=== PATIENT | female | born 1955 | race Hispanic/Latino ===

== ENCOUNTER 2020-09-17 09:39 | Inpatient (IN) | payer OTHER ==
[2020-09-17 11:13] LABS: Absolute Lymphocytes (CBC) 0.5 K/uL (0.7-4.9); Basophils % 0.3 % (0-1.3); Hematocrit 37.5 % (36.0-45.0); Lymphocytes % 4.5 % (15.3-44.8); MPV 11.5 fL (7.6-11.3); RBC Red Blood Cell Count 4.45 M/uL (3.86-4.86)
[2020-09-17] MEDS ORDERED: CEFTRIAXONE/SWI 1gm 1 GM/10 ML SYR ONE (11:13)
[2020-09-17] MEDS ORDERED: NA CHLORIDE 0.9% 3,000 ML ONE (11:13)
[2020-09-17] MEDS ORDERED: FAMOTIDINE 20 MG/2 ML VIAL IV ONE (11:13)
[2020-09-17] MEDS ORDERED: ASPIRIN 81 MG CHEWABLE TABLET ONE (11:13)
[2020-09-17] MEDS ORDERED: NA CHLORIDE 0.9% 250 ML ONE (11:13)
[2020-09-17] MEDS ORDERED: AZITHROMYCIN 500 MG INJ IVPB ONE (11:16)
[2020-09-17 11:17] LABS: Protime INR 1.07
[2020-09-17] MEDS ORDERED: ACETAMINOPHEN 500 MG TAB ONE (11:19)
--- NOTE | 2020-09-17 11:22 | RAD REPORT ---
EXAM DESCRIPTION: Yayo Single View09/17/2020 10:50 am CLINICAL HISTORY: Cough COMPARISON: none FINDINGS: Mild elevation right hemidiaphragm. The lungs appear clear of acute infiltrate. The heart is normal size
[2020-09-17 11:26] LABS: ALT/SGPT 14 U/L (12-78); AST/SGOT 14 U/L (15-37); Albumin 2.6 g/dL (3.4-5.0); Alkaline Phosphatase 74 U/L (45-117); Amylase 37 U/L (25-115); BUN Blood Urea Nitrogen 26 mg/dL (7-18); Bicarbonate 23 mmol/L (21-32); Bilirubin Direct 0.2 mg/dL (0-0.2); Bilirubin Total 0.5 mg/dL (0.2-1.0); Creatine Phosphokinase 72 U/L (26-192); Glucose Level 384 mg/dL (74-106); Lipase 165 U/L (73-393); Potassium 3.7 mmol/L (3.5-5.1); Protein, Total 7.7 g/dL (6.4-8.2); Sodium Level 130 mmol/L (136-145); Troponin (Emerg Dept Use Only) < 0.02 ng/mL (0.0-0.045)
[2020-09-17 11:33] LABS: CKMB Creatine Kinase MB < 1.0 ng/mL (1.0-3.6)
--- NOTE | 2020-09-17 11:40 | EDPHYS ---
Physician Documentation [facility] Name: Rachael Hillman Age: 65 yrs Sex: Female : 1955 Arrival Date: 09/17/2020 Time: 09:41 Bed 17 Private MD: Paul House H ED Physician Matthew Suarez HPI: 09/17 10:51 This 65 yrs old Female presents to ER via Wheelchair with complaints of migdalia Weakness, Cough. 10:51 The patient presents to the emergency department with weakness of the entire body, migdalia generalized weakness. Onset: The symptoms/episode began/occurred yesterday. Historical: - Allergies: 09:49 No Known Allergies; aa5 - PMHx: 09:49 Hypertensive disorder; Diabetes mellitus; Hypercholesterolemia; aa5 - PSHx: 09:49 Cholecystectomy; aa5 - Immunization history:: Adult Immunizations up to date. - Social history:: Smoking status: Patient denies any tobacco usage or history of. ROS: 10:52 Eyes: Negative for injury, pain, redness, and discharge, ENT: Negative for injury, migdalia pain, and discharge, Neck: Negative for injury, pain, and swelling, Cardiovascular: Negative for chest pain, palpitations, and edema, Abdomen/GI: Negative for abdominal pain, nausea, vomiting, diarrhea, and constipation, Back: Negative for injury and pain, : Negative for injury, bleeding, discharge, and swelling, MS/Extremity: Negative for injury and deformity, Skin: Negative for injury, rash, and discoloration, Neuro: Negative for headache, weakness, numbness, tingling, and seizure, Psych: Negative for depression, anxiety, suicide ideation, homicidal ideation, and hallucinations, Allergy/Immunology: Negative for hives, rash, and allergies, Endocrine: Negative for neck swelling, polydipsia, polyuria, polyphagia, and marked weight changes, Hematologic/Lymphatic: Negative for swollen nodes, abnormal bleeding, and unusual bruising. 10:52 Constitutional: Positive for body aches, chills, fever, malaise. 10:52 Respiratory: Positive for cough, "sounds productive". Exam: 10:52 Head/Face: Normocephalic, atraumatic. Eyes: Pupils equal round and reactive to light, migdalia extra-ocular motions intact. Lids and lashes normal. Conjunctiva and sclera are non-icteric and not injected. Cornea within normal limits. Periorbital areas with no swelling, redness, or edema. ENT: Nares patent. No nasal discharge, no septal abnormalities noted. Tympanic membranes are normal and external auditory canals are clear. Oropharynx with no redness, swelling, or masses, exudates, or evidence of obstruction, uvula midline. Mucous membranes moist. Neck: Trachea midline, no thyromegaly or masses palpated, and no cervical lymphadenopathy. Supple, full range of motion without nuchal rigidity, or vertebral point tenderness. No Meningismus. Chest/axilla: Normal chest wall appearance and motion. Nontender with no deformity. No lesions are appreciated. Cardiovascular: Regular rate and rhythm with a normal S1 and S2. No gallops, murmurs, or rubs. Normal PMI, no JVD. No pulse deficits. Respiratory: Lungs have equal breath sounds bilaterally, clear to auscultation and percussion. No rales, rhonchi or wheezes noted. No increased work of breathing, no retractions or nasal flaring. Abdomen/GI: Soft, non-tender, with normal bowel sounds. No distension or tympany. No guarding or rebound. No evidence of tenderness throughout. Back: No spinal tenderness. No costovertebral tenderness. Full range of motion. Female : Normal external genitalia. Skin: Warm, dry with normal turgor. Normal color with no rashes, no lesions, and no evidence of cellulitis. MS/ Extremity: Pulses equal, no cyanosis. Neurovascular intact. Full, normal range of motion. Neuro: Awake and alert, GCS 15, oriented to person, place, time, and situation. Cranial nerves II-XII grossly intact. Motor strength 5/5 in all extremities. Sensory grossly intact. Cerebellar exam normal. Normal gait. Psych: Awake, alert, with orientation to person, place and time. Behavior, mood, and affect are within normal limits. 10:52 Constitutional: The patient appears febrile. Vital Signs: 09:47 BP 118 / 72; Pulse 130; Resp 16 S; Temp 99.8(O); Pulse Ox 97% on R/A; Weight 106.59 kg aa5 (R); Height 5 ft. 3 in. (160.02 cm) (R); 10:35 BP 99 / 62; Pulse 120; Resp 16; Pulse Ox 100% on R/A; hb 13:30 BP 112 / 56; Pulse 102; Resp 18 S; Pulse Ox 96% on R/A; jd3 14:29 BP 118 / 56; Pulse 102; Resp 17 S; Pulse Ox 96% on R/A; jd3 15:36 BP 103 / 71; Pulse 97; Resp 18 S; Pulse Ox 96% on R/A; jd3 09:47 Body Mass Index 41.63 (106.59 kg, 160.02 cm) aa5 MDM: 10:07 Patient medically screened. migdalia 10:54 Differential diagnosis: Anemia Anxiety Reaction Bronchitis CHF exacerbation, Chronic migdalia Obstructive Pulmonary Disease bronchitis, flu, URI. Antibiotic administration: The patient is discharged and will get outpatient antibiotics, Zithromax. Differential Diagnosis sepsis. The patient's Wells Deep Vein Thrombosis Score was calculated as follows: Total Score: 0-2 Pts- Low Risk. The patient's pulmonary embolism risk score was calculated as follows: Total Score: 0-2 points. This patient was found to be at low risk for a pulmonary embolism by using the Well's assessment criteria. Immunization status: Pneumococcal vaccine: Influenza vaccine: Data reviewed: vital signs, nurses notes, lab test result(s), EKG, radiologic studies, plain films. Data interpreted: manager voice: rate is 130 beats/min, rhythm is regular, Pulse oximetry: on room air. Test interpretation: by ED physician or midlevel provider: ECG, plain radiologic studies. Counseling: I had a detailed discussion with the patient and/or guardian regarding: the historical points, exam findings, and any diagnostic results supporting the discharge/admit diagnosis, lab results, radiology results, the need for outpatient follow up, for definitive care, a family practitioner, a respiratory therapy technician. 09/17 10:29 Order name: Amylase, Serum; Complete Time: 11:36 09/17 10:29 Order name: Basic Metabolic Panel; Complete Time: 11:36 09/17 10:29 Order name: Blood Culture Adult (2) 09/17 10:29 Order name: CBC with Diff; Complete Time: 13:20 09/17 10:29 Order name: CPK; Complete Time: 11:36 09/17 10:29 Order name: Ckmb; Complete Time: 11:36 09/17 10:29 Order name: LFT's; Complete Time: 11:36 09/17 10:29 Order name: Lactate; Complete Time: 11:36 09/17 10:29 Order name: Lipase; Complete Time: 11:36 09/17 10:29 Order name: Procalcitonin; Complete Time: 12:05 09/17 10:29 Order name: Protime (+inr); Complete Time: 11:36 09/17 10:29 Order name: Ptt, Activated; Complete Time: 11:36 09/17 10:29 Order name: Troponin (emerg Dept Use Only); Complete Time: 11:36 09/17 10:29 Order name: Urine Microscopic Only 09/17 11:09 Order name: D-Dimer; Complete Time: 11:36 [facility] 09/17 12:34 Order name: COVID-19/FLU A+B; Complete Time: 13:20 [facility] 09/17 13:03 Order name: CBC Smear Scan; Complete Time: 13:20 [facility] 09/17 13:52 Order name: Comprehensive Metabolic Panel [facility] 09/17 13:52 Order name: Comprehensive Metabolic Panel [facility] 09/17 13:53 Order name: C-Reactive Protein [facility] 09/17 13:53 Order name: C-Reactive Protein [facility] 09/17 13:53 Order name: D-Dimer [facility] 09/17 13:53 Order name: D-Dimer [facility] 09/17 13:53 Order name: Ferritin [facility] 09/17 13:53 Order name: Ferritin [facility] 09/17 13:53 Order name: Protime (+INR) [facility] 09/17 13:53 Order name: Protime (+INR) [facility] 09/17 10:29 Order name: Chest Single View XRAY; Complete Time: 11:36 09/17 10:29 Order name: Accucheck; Complete Time: 11:09 09/17 10:29 Order name: Cardiac monitoring; Complete Time: 11:09/17 10:29 Order name: EKG - Nurse/Tech; Complete Time: 10:37 09/17 10:29 Order name: IV Saline Lock - Large Bore; Complete Time: 11:09 09/17 10:29 Order name: Labs collected and sent; Complete Time: 11:09/17 10:29 Order name: O2 Per Protocol; Complete Time: 10:30 09/17 10:29 Order name: O2 Sat Monitoring; Complete Time: 10:30 09/17 10:29 Order name: Urine Dipstick-Ancillary (obtain specimen); Complete Time: 15:37 09/17 11:32 Order name: US Extremity Venous W Compression Carlos; Complete Time: 13:20 [facility] 09/17 13:53 Order name: Heart Healthy [facility] 09/17 13:53 Order name: PTT, Activated Partial Thromb [facility] 09/17 13:53 Order name: PTT, Activated Partial Thromb [facility] 09/17 13:53 Order name: CBC with Automated Diff [facility] 09/17 13:53 Order name: CBC with Automated Diff [facility] 09/17 13:53 Order name: Chest Single View [facility] 09/17 13:53 Order name: Chest Single View [facility] 09/17 14:26 Order name: Urine Culture [facility] 09/17 14:26 Order name: Urine Dipstick-Ancillary EDMS Administered Medications: 11:08 Drug: Rocephin (cefTRIAXone) 1 grams Route: IV; Rate: per protocol; Site: right forearm;hb 12:00 Follow up: Response: No adverse reaction; IV Status: Completed infusion jd3 11:08 Drug: Zithromax (azithromycin) 500 mg Route: IVPB; Infused Over: 1 hrs; Site: right hb forearm; 12:00 Follow up: Response: No adverse reaction; IV Status: Completed infusion jd3 11:08 Drug: Aspirin Chewable Tablet 162 mg Route: PO; hb 12:00 Follow up: Response: No adverse reaction jd3 11:08 Drug: Pepcid (famotidine) 20 mg Route: IVP; Site: right forearm; hb 12:00 Follow up: Response: No adverse reaction jd3 11:08 Drug: Tylenol 1000 mg Route: PO; hb 12:00 Follow up: Response: No adverse reaction jd3 11:09 Drug: NS 0.9% (30 ml/kg) 30 ml/kg Route: IV; Rate: bolus; Site: right forearm; hb 14:30 Follow up: Response: No adverse reaction; IV Status: Infusion continued upon admission jd3 13:15 Drug: Lovenox (enoxaparin) 100 mg Route: Sub-Q; Site: abdomen; jd3 14:15 Follow up: Response: No adverse reaction jd3 13:15 Drug: Insulin Regular Human 8 units {Co-Signature: tr6 (Layla Rutherford RN).} Route: jd3 IVP; Site: right forearm; 14:15 Follow up: Response: No adverse reaction jd3 13:15 Drug: LanTUS (insulin glargine) 35 units Route: Sub-Q; Site: abdomen; jd3 14:15 Follow up: Response: No adverse reaction jd3 Disposition Summary: 09/17/20 11:40 Hospitalization Ordered Hospitalization Status: Inpatient Admission migdalia Provider: Shannon Gaspar cha Location: Telemetry/[facility]Sur (Inpatient) migdalia Condition: Fair migdalia Problem: new migdalia Symptoms: have improved migdalia Bed/Room Type: Standard [facility] Room Assignment: 206(09/17/20 14:15) dw Diagnosis - Chest pain, unspecified migdalia - Chest pain on breathing migdalia - Type 2 diabetes mellitus with hyperglycemia migdalia - Hypotension, unspecified migdalia - Fever, unspecified migdalia - Acute upper respiratory infection, unspecified migdalia - Unspecified kidney failure migdalia - UTI/ Urinary tract infection, site not specified migdalia Discharge Instructions: - Discharge Summary Sheet migdalia - Fever, Adult migdalia - Upper Respiratory Infection, Adult migdalia - Cool Mist Vaporizer migdalia - Upper Respiratory Infection, Adult, [id number] migdalia - Cough, Adult, [id number] migdalia - Cough, Adult migdalia Forms: - Medication Reconciliation Form migdalia - SBAR form [facility] Prescriptions: - Pepcid 20 mg Oral Tablet - take 1 tablet by ORAL route every 12 hours for 10 days; 20 tablet; Refills: 0, migdalia Product Selection Permitted - Zithromax 500 mg Oral Tablet - take 1 tablet by ORAL route once daily for 4 days; 4 tablet; Refills: 0, migdalia Product Selection Permitted Signatures: Dispatcher [employer] EDRI Eladia Sneed RN RN dw Anderson, Corey, MD MD cha Williams, Irene, RN RN iw Calderon, Audri, RN RN aa5 Monique Lopez RN RN hb Davies, Jonathon, RN RN jcharan Rutherford RN tr6 Corrections: (The following items were deleted from the chart) 11:09 10:54 D-DIMER+COAG.LAB.BRZ ordered. EDRI EDMS 11:42 11:33 Chest For PE Angio+CT.RAD.JAMI ordered. EDMS EDMS 11:47 10:15 CORONAVIRUS+MR.LAB.BRStefano ordered. EDMS EDMS 11:48 10:38 Influenza Screen (A \\T\\ B)+BA.LAB.BRZ ordered. EDMS EDMS 14:15 11:40 migdalia dw
--- NOTE | 2020-09-17 11:40 | ER ---
Nurse's Notes [facility] Name: Rachael Hillman Age: 65 yrs Sex: Female : 1955 Arrival Date: 09/17/2020 Time: 09:41 Bed 17 Private MD: Paul House H Diagnosis: Chest pain, unspecified;Chest pain on breathing;Type 2 diabetes mellitus with hyperglycemia;Hypotension, unspecified;Fever, unspecified;Acute upper respiratory infection, unspecified;Unspecified kidney failure;UTI/ Urinary tract infection, site not specified Presentation: 09/17 09:47 Chief complaint: Patient states: chills, generalized weakness, not eating, and dry aa5 cough x 4 days ago. Pt denies SOB, denies palpitations. Coronavirus screen: chills, cough unrelated to allergies. Ebola Screen: Patient negative for fever greater than or equal to 101.5 degrees Fahrenheit, and additional compatible Ebola Virus Disease symptoms. Onset of symptoms was August 2020. 09:47 Method Of Arrival: Wheelchair aa5 09:47 Acuity: CANDACE 2 aa5 09:47 Initial Sepsis Screen: Does the patient meet any 2 criteria? HR > 90 bpm. Does the aa5 patient have a suspected source of infection? Yes:. 09:47 Risk Assessment: Do you want to hurt yourself or someone else? Patient reports no aa5 desire to harm self or others. Historical: - Allergies: 09:49 No Known Allergies; aa5 - PMHx: 09:49 Hypertensive disorder; Diabetes mellitus; Hypercholesterolemia; aa5 - PSHx: 09:49 Cholecystectomy; aa5 - Immunization history:: Adult Immunizations up to date. - Social history:: Smoking status: Patient denies any tobacco usage or history of. Screenin:35 Abuse screen: Denies threats or abuse. Denies injuries from another. Nutritional hb screening: No deficits noted. Tuberculosis screening: No symptoms or risk factors identified. Fall Risk None identified. Assessment: 10:35 General: Appears in no apparent distress. Behavior is calm, cooperative. Pain: Denies hb pain. Neuro: Level of Consciousness is awake, alert, obeys commands, Oriented to person, place, time, situation, Reports generalized weakness. Cardiovascular: Patient's skin is warm and dry. Respiratory: Airway is patent Respiratory effort is even, unlabored, Respiratory pattern is regular, symmetrical. GI: No signs and/or symptoms were reported involving the gastrointestinal system. : No signs and/or symptoms were reported regarding the genitourinary system. EENT: No signs and/or symptoms were reported regarding the EENT system. Derm: Skin is pink, warm \T\ dry. Musculoskeletal: Reports generalized weakness. 12:30 Reassessment: Patient appears in no apparent distress at this time. No changes from jd3 previously documented assessment. Patient and/or family updated on plan of care and expected duration. Pain level reassessed. Patient is alert, oriented x 3, equal unlabored respirations, skin warm/dry/pink. 13:30 Reassessment: Patient appears in no apparent distress at this time. No changes from jd3 previously documented assessment. Patient and/or family updated on plan of care and expected duration. Pain level reassessed. Patient is alert, oriented x 3, equal unlabored respirations, skin warm/dry/pink. 14:29 Reassessment: Patient appears in no apparent distress at this time. Patient and/or j family updated on plan of care and expected duration. Pain level reassessed. Patient is alert, oriented x 3, equal unlabored respirations, skin warm/dry/pink. Patient states feeling better. 15:36 Reassessment: Patient appears in no apparent distress at this time. No changes from jd3 previously documented assessment. Patient and/or family updated on plan of care and expected duration. Pain level reassessed. Patient is alert, oriented x 3, equal unlabored respirations, skin warm/dry/pink. Vital Signs: 09:47 BP 118 / 72; Pulse 130; Resp 16 S; Temp 99.8(O); Pulse Ox 97% on R/A; Weight 106.59 kg aa5 (R); Height 5 ft. 3 in. (160.02 cm) (R); 10:35 BP 99 / 62; Pulse 120; Resp 16; Pulse Ox 100% on R/A; hb 13:30 BP 112 / 56; Pulse 102; Resp 18 S; Pulse Ox 96% on R/A; jd3 14:29 BP 118 / 56; Pulse 102; Resp 17 S; Pulse Ox 96% on R/A; jd3 15:36 BP 103 / 71; Pulse 97; Resp 18 S; Pulse Ox 96% on R/A; jd3 09:47 Body Mass Index 41.63 (106.59 kg, 160.02 cm) aa5 ED Course: 09:41 Patient arrived in ED. as 09:42 Paul House DO is Private Physician. as 09:47 Arm band placed on. aa5 09:48 Triage completed. aa5 10:07 Matthew Suarez MD is Attending Physician. migdalia 10:15 EKG completed in triage. Results shown to MD. aa5 10:35 Patient has correct armband on for positive identification. Bed in low position. Call hb light in reach. 10:50 Chest Single View XRAY In Process Unspecified. EDMS 10:50 Inserted saline lock: 20 gauge in right forearm, using aseptic technique. ,using hb aseptic technique. by KJ Blood collected. 11:08 Monique Lopez, RN is Primary Nurse. hb 11:39 Shannon Gaspar MD is Hospitalizing Provider. migdalia 13:01 US Extremity Venous W Compression Carlos In Process Unspecified. EDMS 14:30 No provider procedures requiring assistance completed. Patient admitted, IV remains in jd3 place. Administered Medications: 11:08 Drug: Rocephin (cefTRIAXone) 1 grams Route: IV; Rate: per protocol; Site: right forearm;hb 12:00 Follow up: Response: No adverse reaction; IV Status: Completed infusion jd3 11:08 Drug: Zithromax (azithromycin) 500 mg Route: IVPB; Infused Over: 1 hrs; Site: right hb forearm; 12:00 Follow up: Response: No adverse reaction; IV Status: Completed infusion jd3 11:08 Drug: Aspirin Chewable Tablet 162 mg Route: PO; hb 12:00 Follow up: Response: No adverse reaction jd3 11:08 Drug: Pepcid (famotidine) 20 mg Route: IVP; Site: right forearm; hb 12:00 Follow up: Response: No adverse reaction jd3 11: Drug: Tylenol 1000 mg Route: PO; hb 12:00 Follow up: Response: No adverse reaction jd3 11:09 Drug: NS 0.9% (30 ml/kg) 30 ml/kg Route: IV; Rate: bolus; Site: right forearm; hb 14:30 Follow up: Response: No adverse reaction; IV Status: Infusion continued upon admission jd3 13:15 Drug: Lovenox (enoxaparin) 100 mg Route: Sub-Q; Site: abdomen; jd3 14:15 Follow up: Response: No adverse reaction jd3 13:15 Drug: Insulin Regular Human 8 units {Co-Signature: tr6 (Layla Rutherford RN).} Route: jd3 IVP; Site: right forearm; 14:15 Follow up: Response: No adverse reaction jd3 13:15 Drug: LanTUS (insulin glargine) 35 units Route: Sub-Q; Site: abdomen; jd3 14:15 Follow up: Response: No adverse reaction jd3 Outcome: 11:40 Decision to Hospitalize by Provider. migdalia 15:35 Admitted to Med/surg accompanied by tech, via wheelchair, room 206, with chart, Report jd3 called to Oliver CORNEJO 15:35 Condition: stable 15:35 Instructed on the need for admit. 15:44 Patient left the ED. jd3 Signatures: Dispatcher [employer] EDMS Matthew Suarez MD MD cha Martinez, Amelia as Calderon, Audri, RN RN aa5 Monique Lopez RN RN Javed Condon RN RN jcharan Rutherford RN tr6 Corrections: (The following items were deleted from the chart) 14:31 14:31 Response: No adverse reaction jd3 jd3 14:32 13:30 LanTUS (insulin glargine) 35 units Sub-Q in abdomen jd3 jd3
[2020-09-17 12:34] LABS: SARS-COV-2 RT PCR NEGATIVE (NEGATIVE)
[2020-09-17 13:03] LABS: Blood Morphology Comment NOT SEEN (NOT SEEN); Platelet Estimate DECR; White Blood Cell Scan OK (OK)
--- NOTE | 2020-09-17 13:14 | RAD REPORT ---
EXAM DESCRIPTION: US - Extrem Venous W Compress Carlos - 09/17/2020 1:01 pm CLINICAL HISTORY: Pain lower extremity swelling COMPARISON: None. TECHNIQUE: Real-time sonographic evaluation of the bilateral lower extremity deep venous systems was performed. FINDINGS: Normal compressibility, flow augmentation, phasic flow and spontaneous flow is identified in both the left and right lower extremity deep venous systems. No intraluminal filling defects seen. IMPRESSION: No DVT in either lower extremity.
[2020-09-17] MEDS ORDERED: INSULIN GLARGINE 100 UNITS/ML SQ ONE (13:18)
[2020-09-17] MEDS ORDERED: ENOXAPARIN 100 MG/ML SYR SQ ONE (13:18)
[2020-09-17] MEDS ORDERED: INSULIN -REGULAR HUMAN 50 UNIT/0.5 ML ML ONE (13:20)
[2020-09-17] MEDS ORDERED: ONDANSETRON 4 MG/2 ML VIAL IV PRN (13:49)
[2020-09-17] MEDS ORDERED: MORPHINE 2 MG/ML SYR IV PRN (13:49)
[2020-09-17] MEDS ORDERED: ALBUTEROL 2.5 MG/3 ML NEB SOL NEB PRN (13:49)
[2020-09-17] MEDS: IPRATROPIUM BROM 0.5MG/2.5ML NEB SCH ×2 (14:00→20:45)
[2020-09-17 14:26] LABS: Urine Blood 2+ (Negative); Urine Glucose 1+ (Negative); Urine Protein 2+ (Negative); Urine pH 5.5 (5.0-7.0)
[2020-09-17 14:41] LABS: Urine Amorphous Sediment 1+ /HPF (NONE SEEN); Urine Bacteria <20 /HPF (<20)
[2020-09-17] MEDS: NA CHLORIDE 0.9% 1,000 ML IV SCH (16:25)
[2020-09-17 16:44] VITALS: BMI 41.6
[2020-09-17] MEDS ORDERED: PNEUMOCOCCAL VACCINE 0.5 ML IMVAC ONE (19:00)
[2020-09-17] MEDS: ACETAMINOPHEN 500 MG TAB PO PRN (19:29)
[2020-09-17] MEDS ORDERED: APIXABAN 5 MG TABLET PO SCH (21:00)
[2020-09-17] MEDS ORDERED: METHYLPREDNISOLONE 125 MG INJ IV SCH (21:00)
[2020-09-17] MEDS: ATORVASTATIN 20 MG TAB PO SCH (21:51)
[2020-09-18] MEDS: IPRATROPIUM BROM 0.5MG/2.5ML NEB SCH ×4 (02:25→19:30)
[2020-09-18 06:31] LABS: Absolute Lymphocytes (CBC) 1.2 K/uL (0.7-4.9); Basophils % 0.6 % (0-1.3); Hematocrit 32.2 % (36.0-45.0); Lymphocytes % 9.5 % (15.3-44.8); MPV 11.6 fL (7.6-11.3); RBC Red Blood Cell Count 3.81 M/uL (3.86-4.86)
[2020-09-18 06:38] LABS: Protime INR 1.1
[2020-09-18 06:47] LABS: ALT/SGPT 13 U/L (12-78); AST/SGOT 14 U/L (15-37); Albumin 2.4 g/dL (3.4-5.0); Alkaline Phosphatase 67 U/L (45-117); BUN Blood Urea Nitrogen 24 mg/dL (7-18); Bicarbonate 23 mmol/L (21-32); Bilirubin Total 0.3 mg/dL (0.2-1.0); Glucose Level 240 mg/dL (74-106); Potassium 3.6 mmol/L (3.5-5.1); Sodium Level 138 mmol/L (136-145); Troponin I < 0.02 ng/mL (0.0-0.045)
[2020-09-18] MEDS: NA CHLORIDE 0.9% 1,000 ML IV SCH ×2 (08:38→16:40)
[2020-09-18] MEDS: ASPIRIN EC 81 MG TAB PO SCH (08:38)
[2020-09-18] MEDS: CALCIUM CARBONATE CHEW 500MG TAB PO SCH ×2 (08:38→21:48)
[2020-09-18] MEDS: CLOPIDOGREL 75 MG TABLET PO SCH (08:39)
--- NOTE | 2020-09-18 09:23 | RAD REPORT ---
EXAM DESCRIPTION: Yayo Single View09/18/2020 5:51 am CLINICAL HISTORY: Chest pain COMPARISON: September 17, 2020 FINDINGS: The lungs appear clear of acute infiltrate. The heart is normal size IMPRESSION: No acute abnormalities displayed
[2020-09-18] MEDS: ACETAMINOPHEN 500 MG TAB PO PRN ×2 (11:32→23:10)
--- NOTE | 2020-09-18 13:45 | P.HP ---
Certification for Inpatient Patient admitted to: Inpatient With expected LOS: >2 Midnights Patient will require the following post-hospital care: None Practitioner: I am a practitioner with admitting privileges, knowledge of patient current condition, hospital course, and medical plan of care. Services: Services provided to patient in accordance with Admission requirements found in Title 42 Section 412.3 of the Code of Federal Regulations Patient History Date of Service: 09/17/20 Reason for admission: Chest pain/fever and rigors History of Present Illness: Patient is a 65-year-old female who came to the hospital with fever and rigors. Patient has been feeling poorly the last 2 weeks. Patient has some dysuria. She use some miconazole cream and got some relief from this. She was doing well up into she started having fever and chest discomfort. she decided to come into the emergency room for further evaluation. In the ER she had extensive workup including chest x-ray and lab data. Her workup revealed a urinary tract infection with toxic encephalopathy. Patient be admitted to the hospital for further evaluation. Check serial troponins and EKG as well. Continue with IV antibiotic therapy. Allergies No Known Allergies Allergy (Unverified 09/17/20 16:08) Home Medications: Atorvastatin Calcium 1 tab PO BEDTIME 09/18/20 Losartan Potassium 1 tab PO BID 09/18/20 Metformin HCl 1 tab PO BID 09/18/20 glipiZIDE [Glipizide] 1 tab PO DAILY 09/18/20 - Past Medical/Surgical History Has patient received pneumonia vaccine in the past: No Diabetic: Yes -: Hypertension -: Diabetes -: High Cholesterol -: Cholecystectomy - Family History Father Medical History: Hypertension, Diabetes Mother Medical History: Hypertension - Social History Smoking Status: Never smoker Alcohol use: No Place of Residence: Home Review of Systems 10-point ROS is otherwise unremarkable Physical Examination - Vital Signs Temperature: 98.7 F Blood Pressure: 131/60 Pulse: 107 Respirations: 18 Pulse Ox (%): 96 - Physical Exam General: Alert, In no apparent distress, Oriented x2, Confused HEENT: Atraumatic, PERRLA, Mucous membr. moist/pink, EOMI, Sclerae nonicteric Neck: Supple, 2+ carotid pulse no bruit, No LAD, Without JVD or thyroid abnormality Respiratory: Clear to auscultation bilaterally, Normal air movement Cardiovascular: Regular rate/rhythm, Normal S1 S2, No murmurs Gastrointestinal: Normal bowel sounds, Soft and benign, Non-distended, Tenderness (Suprapubic) Musculoskeletal: No clubbing, No swelling, No tenderness Neurological: Normal gait, Normal speech, Normal strength at 5/5 x4 extr, Normal tone, Sensation intact, Cranial nerves 3-12 intact, Normal affect Lymphatics: No axilla or inguinal lymphadenopathy Assessment & Plan - Problems (Diagnosis) (1) UTI (urinary tract infection) Current Visit: Yes Status: Acute (2) Sepsis Current Visit: Yes Status: Acute (3) Elevated procalcitonin Current Visit: Yes Status: Acute (4) Toxic encephalopathy Current Visit: Yes Status: Acute (5) Chest pain, rule out acute myocardial infarction Current Visit: Yes Status: Acute (6) Hypertension Current Visit: Yes Status: Acute (7) Type 2 diabetes mellitus Current Visit: Yes Status: Acute - Plan 1. Serial troponins and EKG 2. Cardiology consultation 3. Echocardiogram 4. Continue with IV hydration & continue with IV antibiotics 5. Serial H&H, and we will monitor CBC, BMP, LFTs and lipase along with electrolytes. 6. Strict blood pressure and blood sugar control 7. GI and DVT prophylaxis Discharge Plan: Home Plan to discharge in: Greater than 2 days - Advance Directives Does patient have a Living Will: No Does patient have a Durable POA for Healthcare: No - Code Status/Comfort Care Code Status Assessed: Yes Code Status: Full Code Critical Care: No Time Spent Managing PTS Care (In Minutes): 45
--- NOTE | 2020-09-18 13:50 | P.PN ---
Subjective Date of Service: 09/18/20 Patient continues to improve with no new complaints. Symptoms have much improved. Anticipate discharge in the morning. Review of Systems 10-point ROS is otherwise unremarkable Physical Examination - Vital Signs Temperature: 98.7 F Blood Pressure: 131/60 Pulse: 107 Respirations: 18 Pulse Ox (%): 96 - Physical Exam General: Alert, In no apparent distress, Oriented x3 HEENT: Atraumatic, PERRLA, EOMI Neck: Supple, JVD not distended Respiratory: Clear to auscultation bilaterally, Normal air movement Cardiovascular: Regular rate/rhythm, Normal S1 S2, No murmurs Gastrointestinal: Normal bowel sounds, Soft and benign, Non-distended, No tenderness Musculoskeletal: No clubbing, No swelling, No tenderness Neurological: Normal speech, Normal tone, Normal affect Lymphatics: No axilla or inguinal lymphadenopathy - Studies Medications List Reviewed: Yes Assessment & Plan - Problems (Diagnosis) (1) UTI (urinary tract infection) Current Visit: Yes Status: Acute (2) Sepsis Current Visit: Yes Status: Acute (3) Elevated procalcitonin Current Visit: Yes Status: Acute (4) Toxic encephalopathy Current Visit: Yes Status: Acute (5) Chest pain, rule out acute myocardial infarction Current Visit: Yes Status: Acute (6) Hypertension Current Visit: Yes Status: Acute (7) Type 2 diabetes mellitus Current Visit: Yes Status: Acute - Plan Continue with plan of care as mentioned below: 1. Serial troponins and EKG 2. Continue with IV hydration & continue with IV antibiotics 3. Repeat procalcitonin level 4. Strict blood sugar control 5. Monitor labs 6. Strict blood pressure 7. GI and DVT prophylaxis Discharge Plan: Home Plan to discharge in: Greater than 2 days - Advance Directives Does patient have a Living Will: No Does patient have a Durable POA for Healthcare: No - Code Status/Comfort Care Code Status: Full Code Critical Care: No Time Spent Managing PTS Care (In Minutes): 35
[2020-09-18] MEDS: CEFTRIAXONE/SWI 1gm 1 GM/10 ML SYR IV SCH ×2 (15:14→21:46)
[2020-09-18] MEDS ORDERED: CEFTRIAXONE 1 GM/NS 50 ML 1 GM/50 ML BAG IV SCH (21:00)
[2020-09-18] MEDS ORDERED: GLUCAGON 1 MG/VIAL IM PRN (21:28)
[2020-09-18] MEDS ORDERED: D50W 25 GM/50 ML SYRINGE IV PRN (21:28)
[2020-09-18] MEDS: ATORVASTATIN 20 MG TAB PO SCH (21:46)
[2020-09-18] MEDS: INSULIN -REGULAR HUMAN 50 UNIT/0.5 ML ML SQ SCH (21:47)
[2020-09-19] MEDS: INSULIN -REGULAR HUMAN 50 UNIT/0.5 ML ML SQ SCH ×2 (01:39→12:25)
[2020-09-19] MEDS: IPRATROPIUM BROM 0.5MG/2.5ML NEB SCH ×2 (01:55→08:00)
[2020-09-19 07:01] LABS: Absolute Lymphocytes (CBC) 1.1 K/uL (0.7-4.9); Basophils % 0.6 % (0-1.3); Hematocrit 32.7 % (36.0-45.0); Lymphocytes % 10.8 % (15.3-44.8); RBC Red Blood Cell Count 3.87 M/uL (3.86-4.86)
[2020-09-19 07:10] LABS: Magnesium 2.3 mg/dL (1.8-2.4); Potassium 3.5 mmol/L (3.5-5.1)
[2020-09-19] MEDS: CEFTRIAXONE/SWI 1gm 1 GM/10 ML SYR IV SCH (10:08)
[2020-09-19] MEDS: CALCIUM CARBONATE CHEW 500MG TAB PO SCH (10:09)
[2020-09-19] MEDS: ASPIRIN EC 81 MG TAB PO SCH (10:09)
[2020-09-19] MEDS: CLOPIDOGREL 75 MG TABLET PO SCH (10:09)
--- NOTE | 2020-09-19 11:32 | P.DS ---
Discharge Date: 09/19/20 Disposition: ROUTINE DISCHARGE Discharge Condition: GOOD Reason for Admission: Chest pain/fever and rigors - Problems (1) UTI (urinary tract infection) Status: Acute (2) Sepsis Status: Acute (3) Elevated procalcitonin Status: Acute (4) Toxic encephalopathy Status: Acute (5) Chest pain, rule out acute myocardial infarction Status: Acute (6) Hypertension Status: Acute (7) Type 2 diabetes mellitus Status: Acute Brief History of Present Illness: Patient is a 65-year-old female who came to the hospital with fever and rigors. Patient has been feeling poorly the last 2 weeks. Patient has some dysuria. She use some miconazole cream and got some relief from this. She was doing well up into she started having fever and chest discomfort. she decided to come into the emergency room for further evaluation. In the ER she had extensive workup including chest x-ray and lab data. Her workup revealed a urinary tract infection with toxic encephalopathy. Patient be admitted to the hospital for further evaluation. Check serial troponins and EKG as well. Continue with IV antibiotic therapy. Hospital Course: Patient is clinically doing well. At this time, patient is stable for discharge with outpatient followup. Patient will continue with current treatment with antibiotics and IV fluids. Continue with outpatient follow-up with PCP in 1-2 weeks and continue with antibiotic therapy for 7-10 more days. Vital Signs/Physical Exam: Temp Pulse Resp BP Pulse Ox 98.6 F 96 H 18 139/66 96 09/19/20 08:45 09/19/20 08:45 09/19/20 08:45 09/19/20 08:45 09/19/20 08:45 General: Alert, In no apparent distress, Oriented x3 Laboratory Data at Discharge: WBC 10.50 K/uL (4.3-10.9) D 09/19/20 06:27 Hgb 10.8 g/dL (12.0-15.0) L 09/19/20 06:27 Hct 32.7 % (36.0-45.0) L 09/19/20 06:27 Plt Count 128 K/uL (152-406) L D 09/19/20 06:27 PT 12.7 SECONDS (9.5-12.5) H 09/18/20 06:13 INR 1.10 09/18/20 06:13 APTT 22.2 SECONDS (24.3-36.9) L 09/18/20 06:13 Sodium 140 mmol/L (136-145) 09/19/20 06:27 Potassium 3.5 mmol/L (3.5-5.1) 09/19/20 06:27 BUN 19 mg/dL (7-18) H 09/19/20 06:27 Creatinine 1.05 mg/dL (0.55-1.3) 09/19/20 06:27 Glucose 196 mg/dL (74-106) H 09/19/20 06:27 Magnesium 2.3 mg/dL (1.8-2.4) 09/19/20 06:27 Total Bilirubin 0.3 mg/dL (0.2-1.0) 09/18/20 06:13 AST 14 U/L (15-37) L 09/18/20 06:13 ALT 13 U/L (12-78) 09/18/20 06:13 Alkaline Phosphatase 67 U/L (45-117) 09/18/20 06:13 Troponin I < 0.02 ng/mL (0.0-0.045) 09/18/20 06:13 Amylase 37 U/L (25-115) 09/17/20 10:50 Lipase 165 U/L (73-393) 09/17/20 10:50 Home Medications: Atorvastatin Calcium 1 tab PO BEDTIME 09/18/20 Losartan Potassium 1 tab PO BID 09/18/20 Metformin HCl 1 tab PO BID 09/18/20 glipiZIDE [Glipizide] 1 tab PO DAILY 09/18/20 Cefdinir [Omnicef] 300 mg PO BID #20 capsule 09/19/20 New Medications: Cefdinir [Omnicef] 300 mg PO BID #20 capsule Physician Discharge Instructions: OK TO DC IV AND DC HOME FOLLOW-UP WITH PRIMARY CARE PROVIDER IN 1-2 WEEKS FOLLOW-UP WITH Urology IN 1-2 WEEKS RETURN TO THE ER IF symptoms worsen CALL or TEXT DR. MURRY AT [phone] IF ANY QUESTIONS REGARDING HOSPITAL STAY. PLEASE CALL THE FLOOR AT [phone] IF ANY MEDICATION OR NURSING QUESTIONS. Diet: AHA Activity: Fall precautions Followup: Paul House DO, DO [Primary Care Provider] - Time spent managing pt's care (in minutes): 35
[2020-09-19 12:23] VITALS: BP 140/66; TEMP 99.3
[2020-09-19] MEDS: ACETAMINOPHEN 500 MG TAB PO PRN (12:26)
[2020-09-19 12:31] VITALS: O2SAT 97
--- NOTE | 2020-09-21 08:52 | ECHO ---
HEIGHT: 5 ft 3 in WEIGHT: 235 lb 0 oz DATE OF STUDY: 09/18/[address]: Shannon Gaspar MD 2-DIMENSIONAL: YES M.MODE: YES DOPPLER: YES COLOR FLOW: YES TDS: YES PORTABLE: NO DEFINITY: NO BUBBLE STUDY: NO DIAGNOSIS: CONGESTIVE HEART FAILURE CARDIAC HISTORY: CATHERIZATION: NO SURGERY: NO PROSTHETIC VALVE: NO PACEMAKER: NO MEASUREMENTS (cm) DIASTOLIC (NORMALS) SYSTOLIC (NORMALS) IVSd (0.6-1.2) LA Diam (1.9-4.0) LVEF 55-60% LVIDd (3.5-5.7) LVIDs (2.0-3.5) %FS % LVPWd (0.6-1.2) Ao Diam (2.0-3.7) 2 DIMENSIONAL ASSESSMENT: RIGHT ATRIUM: NORMAL LEFT ATRIUM: NORMAL RIGHT VENTRICLE: NORMAL LEFT VENTRICLE: NORMAL TRICUSPID VALVE: MITRAL VALVE: PULMONIC VALVE: AORTIC VALVE: NORMAL PERICARDIAL EFFUSION: NONE AORTIC ROOT: NORMAL LEFT VENTRICULAR WALL MOTION: NORMAL DOPPLER/COLOR FLOW: SEE BELOW COMMENTS: NORMAL LEFT VENTRICULAR EJECTION FRACTION 55-60% WITH NORMAL WALL MOTION. DIASTOLIC DYSFUNCTION. MILD MITRAL, TRICUSPID AND PULMONARY REGURGITATION. TECHNOLOGIST: Antonio HODGES
== END 2020-09-19 12:42 | disposition home or self-care (01) | DRG 689 ==
LOC: ER 09:39 → ERHOLD 13:50 → 2ND 15:41
PROVIDERS: ADMIT Hospitalist; ATTEND Hospitalist
DX: N39.0 Urinary tract infection, site not specified (principal); G92 Toxic encephalopathy; I10 Essential (primary) hypertension; E11.9 Type 2 diabetes mellitus without complications; Z20.822 Contact with and (suspected) exposure to COVID-19
CPT/HCPCS: 0240U; 36415; 71045; 80048; 80053; 80076; 81003; 81015; 82150; 82550; 82553; 82947; 83605; 83690; 83735; 84145; 84484; 85025; 85379; 85610; 85730; 87040; 87086; 87088; 93005; 93306; 93970; 94640; 96365; 96366; 96367; 96368; 96372; 96375; 99285; J0456; J0696; J1650; J1815; J2270; J7030; J7050

== ENCOUNTER 2022-03-17 10:03 | Emergency (ER) | payer OTHER ==
[2022-03-17] MEDS ORDERED: ONDANSETRON 4 MG/2 ML VIAL ONE (10:23)
[2022-03-17] MEDS ORDERED: NA CHLORIDE 0.9% 1,000 ML ONE (10:23)
[2022-03-17 10:35] LABS: Absolute Lymphocytes (CBC) 2.8 K/uL (0.7-4.9); Hematocrit 41.1 % (36.0-45.0); Lymphocytes % 29.5 % (15.3-44.8); MCV 83.9 fL (80-100); MPV 10.7 fL (7.6-11.3)
[2022-03-17 10:50] LABS: Albumin 3.3 g/dL (3.4-5.0); Bilirubin Total 0.5 mg/dL (0.2-1.0); Potassium 3.9 mmol/L (3.5-5.1); Protein, Total 7.7 g/dL (6.4-8.2)
[2022-03-17 11:29] LABS: Urine Blood Negative (Negative); Urine Glucose Negative (Negative); Urine Protein Negative (Negative)
--- NOTE | 2022-03-17 11:46 | ER ---
Nurse's Notes [facility] Name: Rachael Hillman Age: 66 yrs Sex: Female : 1955 Arrival Date: 03/17/2022 Time: 10:04 Bed 12 Private MD: Paul House H Diagnosis: Diarrhea, unspecified;Nausea Presentation: 03/17 10:09 Chief complaint: Patient states: when i go to sleep i feel nausea and it scares me , iw denies pain. Coronavirus screen: At this time, the client does not indicate any symptoms associated with coronavirus-19. Ebola Screen: Patient negative for fever greater than or equal to 101.5 degrees Fahrenheit, and additional compatible Ebola Virus Disease symptoms Patient denies exposure to infectious person. Patient denies travel to an Ebola-affected area in the 21 days before illness onset. No symptoms or risks identified at this time. Initial Sepsis Screen: Does the patient meet any 2 criteria? No. Patient's initial sepsis screen is negative. Does the patient have a suspected source of infection? No. Patient's initial sepsis screen is negative. Risk Assessment: Do you want to hurt yourself or someone else? Patient reports no desire to harm self or others. Onset of symptoms was March 02, 2022. 10:09 Method Of Arrival: Ambulatory iw 10:09 Acuity: CANDACE 3 iw Historical: - Allergies: 10:11 No Known Allergies; iw - Home Meds: 10:13 metformin 1,000 mg Oral tr24 1 tab 2 times per day [Active]; atorvastatin 40 mg oral iw tab 1 tab once daily [Active]; losartan 50 mg oral tab 1 tab 2 times per day [Active]; glipizide 5 mg Oral tab 1 tab 2 times per day [Active]; - PMHx: 10:11 diabetes mellitus; Hypercholesterolemia; Hypertensive disorder; iw - PSHx: 10:11 Cholecystectomy; iw Screenin:25 [facility] ED Fall Risk Assessment (Adult) Score/Fall Risk Level 0 - 2 = Low Risk. Abuse iw screen: Denies threats or abuse. Denies injuries from another. Nutritional screening: No deficits noted. Tuberculosis screening: No symptoms or risk factors identified. Vital Signs: 10:09 BP 117 / 76; Pulse 104; Resp 16; Temp 97.7; Pulse Ox 100% ; Pain 0/10; iw ED Course: 10:04 Patient arrived in ED. am2 10:04 Paul House DO is Private Physician. am2 10:05 Andrea Diaz PA is PHCP. [facility] 10:05 Matt Taylor MD is Attending Physician. m 10:11 Triage completed. iw 10:12 Arm band placed on. iw 10:22 Initial lab(s) drawn, by me, sent to lab. Inserted saline lock: 22 gauge in left iw forearm, using aseptic technique. Blood collected. . 10:24 Melody Min, RN is Primary Nurse. iw 11:45 Paul House DO is Referral Physician. [facility] Administered Medications: 10:24 Drug: NS 0.9% 1000 ml Route: IV; Rate: 1 bolus; Site: left forearm; iw 10:24 Drug: Zofran (Ondansetron) 4 mg Route: IVP; Site: left forearm; iw Outcome: 11:46 Discharge ordered by . [facility] 12:01 Patient left the ED. iw Signatures: Andrea Diaz PA PA Melody Palomo RN RN iw [place] Kendall am2 Corrections: (The following items were deleted from the chart) 10:12 10:09 Pulse 104bpm; Resp 16bpm; Pulse Ox 100%; Temp 97.7F; Pain 0/10; iw iw 10:25 10:22 Inserted saline lock: 22 gauge in left forearm, using aseptic technique. Blood iw collected. Inserted by Melody Min RN iw 10: 10:22 Initial lab(s) drawn, by ED staff, sent to lab. iw iw 10:25 10:25 Inserted saline lock: 22 gauge in left forearm, using aseptic technique. Blood iw collected. iw 10:25 10:25 Initial lab(s) drawn, by me, sent to lab. iw iw
--- NOTE | 2022-03-17 11:46 | EDPHYS ---
Physician Documentation [facility] Name: Rachael Hillman Age: 66 yrs Sex: Female : 1955 Arrival Date: 03/17/2022 Time: 10:04 Bed 12 Private MD: Paul House H ED Physician Matt Taylor HPI: 03/17 10:14 This 66 yrs old Female presents to ER via Ambulatory with complaints of jmm Abdominal Pain. 10:14 The patient presents with. Onset: The symptoms/episode began/occurred gradually, 4 jmm day(s) ago. This is a 66-year-old female with history diabetes mellitus, hyperlipidemia, hypertension the presents emerged part with complaints of multiple episodes of diarrhea over the past 4 days along with nausea. Patient states she will wake up at night with intense nausea and feels something moving in her stomach which scares her. Denies any pain. Denies fever.. Historical: - Allergies: 10:11 No Known Allergies; iw - Home Meds: 10:13 metformin 1,000 mg Oral tr24 1 tab 2 times per day [Active]; atorvastatin 40 mg oral iw tab 1 tab once daily [Active]; losartan 50 mg oral tab 1 tab 2 times per day [Active]; glipizide 5 mg Oral tab 1 tab 2 times per day [Active]; - PMHx: 10:11 diabetes mellitus; Hypercholesterolemia; Hypertensive disorder; iw - PSHx: 10:11 Cholecystectomy; iw ROS: 10:14 Constitutional: Negative for fever, chills, and weight loss, Cardiovascular: Negative jmm for chest pain, palpitations, and edema, Respiratory: Negative for shortness of breath, cough, wheezing, and pleuritic chest pain. 10:14 Abdomen/GI: Positive for nausea, diarrhea. 10:14 All other systems are negative. Exam: 10:14 Head/Face: atraumatic. Eyes: EOMI, no conjunctival erythema appreciated ENT: Moist jmm Mucus Membranes Neck: Trachea midline, Supple Chest/axilla: Normal chest wall appearance and motion. 10:14 Respiratory: Normal respirations, no respiratory distress appreciated 10:14 Back: Normal ROM Skin: General appearance color normal MS/ Extremity: Moves all extremities, no obvious deformities appreciated, no edema noted to the lower extremities Neuro: Awake and alert Psych: Behavior is normal, Mood is normal, Patient is cooperative and pleasant 10:14 Constitutional: The patient appears alert, awake, anxious. 10:14 Abdomen/GI: Inspection: obese Bowel sounds: normal, Palpation: soft, nontender, in all quadrants. Vital Signs: 10:09 BP 117 / 76; Pulse 104; Resp 16; Temp 97.7; Pulse Ox 100% ; Pain 0/10; iw MDM: 10:14 Patient medically screened. [facility] 11:06 Data reviewed: vital signs, nurses notes. Data reviewed: lab test result(s). [facility] 11:38 ED course: After administration of IV fluids, patient states feeling much better. [facility] Patient has no nausea. Is able to tolerate p.o. in the ED. Patient's abdomen is examined. No pain on palpation. Abdomen soft. I do not currently suspect an acute intra-abdominal process. Patient will be prescribed an antiemetic and dicyclomine to help with her symptoms. Patient otherwise advised follow GI and otherwise given strict return precautions. Patient understood agrees plan of care.. 03/17 10:14 Order name: CBC with Diff; Complete Time: 10:43 [facility] 03/17 10:14 Order name: CMP; Complete Time: 10:52 [facility] 03/17 10:14 Order name: Lipase; Complete Time: 10:52 [facility] 03/17 11:29 Order name: Urine Dipstick-Ancillary; Complete Time: 11:36 [facility] 03/17 10:14 Order name: IV Saline Lock; Complete Time: 10:24 [facility] 03/17 10:14 Order name: Labs collected and sent; Complete Time: 10:24 [facility] 03/17 10:14 Order name: Urine Dipstick-Ancillary (obtain specimen); Complete Time: 11:27 [facility] Administered Medications: 10:24 Drug: NS 0.9% 1000 ml Route: IV; Rate: 1 bolus; Site: left forearm; iw 10:24 Drug: Zofran (Ondansetron) 4 mg Route: IVP; Site: left forearm; iw Disposition: 13:32 I reviewed the patient's care provided by the Advanced Practice Provider and agree with jrEvi the diagnosis and treatment plan. Disposition Summary: 03/17/22 11:46 Discharge Ordered Location: Home [facility] Condition: Stable [facility] Diagnosis - Diarrhea, unspecified [facility] - Nausea [facility] Followup: [facility] - With: Paul House DO - When: 1 - 2 days - Reason: Recheck today's complaints, Continuance of care, Re-evaluation by your physician Discharge Instructions: - Discharge Summary Sheet jmm - Diarrhea, Adult jmm - Nausea, Adult [facility] Forms: - Medication Reconciliation Form [facility] - Thank You Letter [facility] - Antibiotic Education [facility] - Prescription Opioid Use [facility] Prescriptions: - ondansetron 4 mg Oral tablet,disintegrating - place 1 tablet by TRANSLINGUAL route every 4-6 hours As needed; 20 tablet; jm Refills: 0, Product Selection Permitted - dicyclomine 20 mg Oral Tablet - take 1 tablet by ORAL route 3 times per day; 20 tablet; Refills: 0, Product [facility] Selection Permitted Signatures: Dispatcher [employer] Andrea Wong PA PA jmm Williams, Irene, Matt Schwartz RN, MD MD [email or web address]
[2022-03-17 12:20] VITALS: BP 117/76; TEMP 97.7; O2SAT 100
== END 2022-03-17 12:01 | disposition home or self-care (01) ==
LOC: ER 10:03
DX: R11.0 Nausea (principal); R19.7 Diarrhea, unspecified; E11.9 Type 2 diabetes mellitus without complications; I10 Essential (primary) hypertension
CPT/HCPCS: 85025; 36415; 81003; 83690; 80053; 96374; 99283; J7030; J2405

== ENCOUNTER 2022-03-23 15:04 | Emergency (ER) | payer OTHER ==
[2022-03-23] MEDS ORDERED: Ringers Lactate 1,000 ML IV ONE (16:13)
[2022-03-23] MEDS ORDERED: ONDANSETRON 4 MG/2 ML VIAL ONE (16:13)
[2022-03-23 16:38] LABS: Absolute Lymphocytes (CBC) 1.9 K/uL (0.7-4.9); Hematocrit 40.8 % (36.0-45.0); Lymphocytes % 21.1 % (15.3-44.8); MCV 85.3 fL (80-100); MPV 11.7 fL (7.6-11.3); RBC Red Blood Cell Count 4.78 M/uL (3.86-4.86)
[2022-03-23 16:57] LABS: Albumin 3.1 g/dL (3.4-5.0); Bilirubin Total 0.4 mg/dL (0.2-1.0); Potassium 3.8 mmol/L (3.5-5.1); Protein, Total 6.9 g/dL (6.4-8.2)
[2022-03-23 17:31] LABS: Urine Blood Negative (Negative); Urine Glucose Negative (Negative); Urine Protein Negative (Negative); Urine Specific Gravity 1.025 (1.005-1.030)
--- NOTE | 2022-03-23 17:52 | RAD REPORT ---
EXAM DESCRIPTION: CT - Abdomen Pelvis W Contrast - 03/23/2022 5:26 pm CLINICAL HISTORY: Abdominal pain COMPARISON: none. TECHNIQUE: Computed axial tomography of the abdomen pelvis was obtained. 100 cc Isovue-300 was admin istered intravenously. Oral contrast was not requested which limits evaluation of bowel and appendix All CT scans are performed using dose optimization technique as appropriate and may include automated exposure control or mA/KV adjustment according to patient size. FINDINGS: The liver, spleen, pancreas, adrenal and kidneys appear unremarkable. Large number of diverticula stem from the distal descending and sigmoid colon. Minimal stranding with in the adjacent fat Normal appendix No adnexal mass IMPRESSION: Minimal left-sided diverticulitis
--- NOTE | 2022-03-23 18:00 | ER ---
Nurse's Notes [facility] Name: Rachael Hillman Age: 66 yrs Sex: Female : 1955 Arrival Date: 03/23/2022 Time: 15:06 Bed 18 Private MD: Paul House H Diagnosis: Acute diverticulitis Presentation: 03/23 15:33 Chief complaint: Patient states: Still has continued abd pain since her last visit here ll1 last week. + N/V/D. No fever. Coronavirus screen: Vaccine status: Patient reports receiving the 2nd dose of the covid vaccine. Client denies travel out of the [place] in the last 14 days. At this time, the client does not indicate any symptoms associated with coronavirus-19. Ebola Screen: Patient denies travel to an Ebola-affected area in the 21 days before illness onset. Initial Sepsis Screen: Does the patient meet any 2 criteria? HR > 90 bpm. Does the patient have a suspected source of infection? Yes: Acute abdominal pain. Risk Assessment: Do you want to hurt yourself or someone else? Patient reports no desire to harm self or others. Onset of symptoms was March 11, 2022. 15:33 Method Of Arrival: Ambulatory ll1 15:33 Acuity: CANDACE 3 ll1 Triage Assessment: 15:35 General: Appears uncomfortable, ill, Behavior is cooperative, appropriate for age. ll1 Pain: Complains of pain in abdomen Quality of pain is described as aching, crampy. Neuro: Reports weakness. Cardiovascular: No deficits noted. GI: Reports lower abdominal pain, upper abdominal pain, cramping, diarrhea, nausea, vomiting. Historical: - Allergies: 15:35 No Known Allergies; ll1 - PMHx: 15:35 diabetes mellitus; Hypercholesterolemia; Hypertensive disorder; ll1 - PSHx: 15:35 Cholecystectomy; ll1 - Immunization history:: Client reports receiving the 2nd dose of the Covid vaccine. - Social history:: Smoking status: Patient denies any tobacco usage or history of. Screenin:15 [facility] ED Fall Risk Assessment (Adult) History of falling in the last 3 months, vg1 including since admission No falls in past 3 months (0 pts) Confusion or Disorientation No (0 pts) Intoxicated or Sedated No (0 pts) Impaired Gait No (0 pts) Mobility Assist Device Used No (0 pt) Altered Elimination No (0 pt) Score/Fall Risk Level 0 - 2 = Low Risk Oriented to surroundings, Maintained a safe environment, Educated pt \T\ family on fall prevention, incl call for assistance when getting out of bed, Assessed \T\ reinforced patient's understanding of fall precautions. Abuse screen: Denies threats or abuse. Denies injuries from another. Nutritional screening: No deficits noted. Tuberculosis screening: No symptoms or risk factors identified. Assessment: 16:15 General: Appears in no apparent distress. uncomfortable, Behavior is calm, cooperative. vg1 Pain: Complains of pain in umbilical area Pain currently is 4 out of 10 on a pain scale. Pain began x 1 week. Neuro: Level of Consciousness is awake, alert, obeys commands, Oriented to person, place, time, situation. Cardiovascular: Patient's skin is warm and dry. Respiratory: Airway is patent Respiratory effort is even, unlabored. GI: Abdomen is round non-distended, Bowel sounds present X 4 quads. Abd is soft and non tender X 4 quads. Reports diarrhea, nausea, vomiting. : No signs and/or symptoms were reported regarding the genitourinary system. EENT: No signs and/or symptoms were reported regarding the EENT system. Derm: Skin is pink, warm \T\ dry. Musculoskeletal: Circulation, motion, and sensation intact. 17:20 Reassessment: Pt transported to imaging via wheelchair. vg1 17:35 Reassessment: Patient appears in no apparent distress at this time. No changes from vg1 previously documented assessment. Patient and/or family updated on plan of care and expected duration. Pain level reassessed. Patient is alert, oriented x 3, equal unlabored respirations, skin warm/dry/pink. 18:30 Reassessment: Patient appears in no apparent distress at this time. No changes from vg1 previously documented assessment. Patient and/or family updated on plan of care and expected duration. Pain level reassessed. Patient is alert, oriented x 3, equal unlabored respirations, skin warm/dry/pink. Vital Signs: 15:33 BP 143 / 72; Pulse 108; Resp 18; Temp 97.7; Pulse Ox 97% ; Weight 103.87 kg; Height 5 ll1 ft. 3 in. (160.02 cm); Pain 9/10; 16:15 BP 119 / 63; Pulse 88; Resp 16; Pulse Ox 99% on R/A; vg1 17:30 BP 143 / 74; Pulse 80; Resp 16; Pulse Ox 99% on R/A; vg1 15:33 Body Mass Index 40.57 (103.87 kg, 160.02 cm) ll1 ED Course: 15:06 Patient arrived in ED. as 15:06 Pual House DO is Private Physician. as 15:35 Triage completed. ll1 15:35 Arm band placed on Patient placed in an exam room, on a stretcher. ll1 15:39 Andrea Diaz PA is PHCP. [facility] 15:39 Thong Peguero MD is Attending Physician. jmm 16:06 Roselia Drummond, CHANTAL is Primary Nurse. vg1 16:15 Patient has correct armband on for positive identification. Bed in low position. Call vg1 light in reach. Side rails up X 1. Adult w/ patient. 17:28 Abdomen In Process Unspecified. EDMS 18:00 Hemal Kunz MD is Referral Physician. m 18:44 No provider procedures requiring assistance completed. vg1 18:44 IV discontinued, intact, bleeding controlled, No redness/swelling at site. Pressure vg1 dressing applied. Administered Medications: 16:26 Drug: Zofran (Ondansetron) 4 mg Route: IVP; Site: right antecubital; vg1 18:26 Follow up: Response: No adverse reaction; Marked relief of symptoms vg1 16:26 Drug: Lactated Ringers Solution 1000 ml Route: IV; Rate: 1000 bolus; Site: right vg1 antecubital; 18:26 Follow up: IV Status: Completed infusion; IV Intake: 1000ml vg1 18:42 Drug: metroNIDAZOLE 500 mg Route: PO; vg1 18:42 Follow up: Response: Medication administered at discharge. vg1 18:42 Drug: LevaQUIN (levofloxacin) 750 mg Route: PO; vg1 18:43 Follow up: Response: Medication administered at discharge. vg1 Medication: 16:15 VIS not applicable for this client. vg1 Intake: 18:26 IV: 1000ml; Total: 1000ml. vg1 Outcome: 18:00 Discharge ordered by . jmm 18:44 Discharged to home ambulatory, with family. vg1 18:44 Condition: good 18:44 Discharge instructions given to patient, Instructed on discharge instructions, follow up and referral plans. medication usage, Demonstrated understanding of instructions, follow-up care, medications, Prescriptions given X 3. 18:45 Patient left the ED. vg1 Signatures: Dispatcher [employer] EDMS Andrea Diaz PA PA jmm Martinez, Amelia as Garcia, Victoria, RN RN vg1 Larisa Murillo RN RN 1
--- NOTE | 2022-03-23 18:01 | EDPHYS ---
Physician Documentation [facility] Name: Rachael Hillman Age: 66 yrs Sex: Female : 1955 Arrival Date: 03/23/2022 Time: 15:06 Bed 18 Private MD: Paul House H ED Physician Thong Peguero HPI: 03/23 15:46 This 66 yrs old Female presents to ER via Ambulatory with complaints of m Abdominal Pain. 15:46 The patient presents with abdominal pain. Onset: The symptoms/episode began/occurred jmm gradually, 1 month(s) ago. The symptoms do not radiate. Associated signs and symptoms: Pertinent negatives: fever. The symptoms are described as achy. Modifying factors: The symptoms are alleviated by nothing, the symptoms are aggravated by food. The patient has not experienced similar symptoms in the past. This is a 66-year-old female with history of hyperlipidemia, diabetes mellitus, hypertension the presents emerged department with complaints of abdominal discomfort, multiple episodes of diarrhea, nausea. Symptoms initially began about a month ago. Patient was seen in the ED about a week ago. Patient states having no relief of her symptoms since.. Historical: - Allergies: 15:35 No Known Allergies; ll1 - PMHx: 15:35 diabetes mellitus; Hypercholesterolemia; Hypertensive disorder; ll1 - PSHx: 15:35 Cholecystectomy; ll1 - Immunization history:: Client reports receiving the 2nd dose of the Covid vaccine. - Social history:: Smoking status: Patient denies any tobacco usage or history of. ROS: 15:46 Constitutional: Negative for fever, chills, and weight loss, Cardiovascular: Negative jmm for chest pain, palpitations, and edema, Respiratory: Negative for shortness of breath, cough, wheezing, and pleuritic chest pain. 15:46 Abdomen/GI: Positive for abdominal pain, nausea and vomiting, diarrhea. 15:46 All other systems are negative. Exam: 15:46 Constitutional: This is a well developed, well nourished patient who is awake, alert, jmm and in no acute distress. Head/Face: atraumatic. Eyes: EOMI, no conjunctival erythema appreciated ENT: Moist Mucus Membranes Neck: Trachea midline, Supple Chest/axilla: Normal chest wall appearance and motion. Cardiovascular: Regular rate and rhythm. No edema appreciated Respiratory: Normal respirations, no respiratory distress appreciated 15:46 Back: Normal ROM Skin: General appearance color normal MS/ Extremity: Moves all extremities, no obvious deformities appreciated, no edema noted to the lower extremities Neuro: Awake and alert Psych: Behavior is normal, Mood is normal, Patient is cooperative and pleasant 15:46 Abdomen/GI: Inspection: scar(s), Bowel sounds: normal, Palpation: soft, in all quadrants. Vital Signs: 15:33 BP 143 / 72; Pulse 108; Resp 18; Temp 97.7; Pulse Ox 97% ; Weight 103.87 kg; Height 5 ll1 ft. 3 in. (160.02 cm); Pain 9/10; 16:15 BP 119 / 63; Pulse 88; Resp 16; Pulse Ox 99% on R/A; vg1 17:30 BP 143 / 74; Pulse 80; Resp 16; Pulse Ox 99% on R/A; vg1 15:33 Body Mass Index 40.57 (103.87 kg, 160.02 cm) ll1 MDM: 15:46 Patient medically screened. [facility] 17:09 Data reviewed: vital signs, nurses notes. [facility] 17:59 I considered the following discharge prescriptions or medication management in the [facility] emergency department Medications were administered in the Emergency Department. See MAR. Counseling: I had a detailed discussion with the patient and/or guardian regarding: the historical points, exam findings, and any diagnostic results supporting the discharge/admit diagnosis, lab results, radiology results, the need for outpatient follow up, to return to the emergency department if symptoms worsen or persist or if there are any questions or concerns that arise at home. ED course: CT revealed diverticulitis. Will treat with oral antibiotics. Patient given strict return precautions. Patient understood and agrees plan of care.. 03/23 15:48 Order name: CBC with Diff; Complete Time: 16:45 [facility] 03/23 15:48 Order name: CMP; Complete Time: 17:01 [facility] 03/23 15:48 Order name: Lipase; Complete Time: 17:01 [facility] 03/23 15:48 Order name: CT Abd/Pelvis - IV Contrast Only [facility] 03/23 15:52 Order name: Abdomen ; Complete Time: 17:56 [facility] 03/23 17:31 Order name: Urine Dipstick-Ancillary; Complete Time: 17:34 [facility] 03/23 15:48 Order name: IV Saline Lock; Complete Time: 16:31 [facility] 03/23 15:48 Order name: Labs collected and sent; Complete Time: 16:31 [facility] 03/23 15:48 Order name: Urine Dipstick-Ancillary (obtain specimen); Complete Time: 17:36 [facility] Administered Medications: 16:26 Drug: Zofran (Ondansetron) 4 mg Route: IVP; Site: right antecubital; vg1 18:26 Follow up: Response: No adverse reaction; Marked relief of symptoms vg1 16:26 Drug: Lactated Ringers Solution 1000 ml Route: IV; Rate: 1000 bolus; Site: right vg1 antecubital; 18:26 Follow up: IV Status: Completed infusion; IV Intake: 1000ml vg1 18:42 Drug: metroNIDAZOLE 500 mg Route: PO; vg1 18:42 Follow up: Response: Medication administered at discharge. vg1 18:42 Drug: LevaQUIN (levofloxacin) 750 mg Route: PO; vg1 18:43 Follow up: Response: Medication administered at discharge. vg1 Disposition: 18:48 Co-signature as Attending Physician, Thong Peguero MD I agree with the assessment and kdr plan of care. Disposition Summary: 03/23/22 18:00 Discharge Ordered Location: Home [facility] Condition: Stable [facility] Diagnosis - Acute diverticulitis [facility] Followup: [facility] - With: Hemal Kunz MD - When: 2 - 3 days - Reason: Recheck today's complaints, Continuance of care, Re-evaluation by your physician Discharge Instructions: - Discharge Summary Sheet [facility] - Food Choices to Help Relieve Diarrhea, Adult jm - Diverticulitis [facility] - Diarrhea, Adult [facility] Forms: - Medication Reconciliation Form [facility] - Thank You Letter [facility] - Antibiotic Education [facility] - Prescription Opioid Use [facility] Prescriptions: - levofloxacin 750 mg Oral tablet - take 1 tablet by ORAL route once daily for 10 days; 10 tablet; Refills: 0, [facility] Product Selection Permitted - Flagyl 500 mg Oral Tablet - take 1 tablet by ORAL route every 6 hours for 10 days; 40 tablet; Refills: 0, [facility] Product Selection Permitted - Lomotil 2.5-0.025 mg Oral Tablet - take 1 tablet by ORAL route every 6 hours As needed; 20 tablet; Refills: 0, [facility] Product Selection Permitted Signatures: Dispatcher [employer] Thong Erickson MD MD kdr Mickail, Joel, PA PA jmm Garcia, Victoria RN RN vg1 Larisa Murillo RN RN ll1
[2022-03-23] MEDS ORDERED: metroNIDAZOLE 500 MG TABLET ONE (18:39)
[2022-03-23] MEDS ORDERED: levoFLOXacin 750 MG TAB ONE (18:39)
[2022-03-23 19:22] VITALS: TEMP 97.7
[2022-03-23 19:23] VITALS: O2SAT 99
[2022-03-23 19:24] VITALS: BP 143/74
== END 2022-03-23 18:45 | disposition home or self-care (01) ==
LOC: ER 15:04
DX: K57.32 Diverticulitis of large intestine without perforation or abscess without bleeding (principal); E11.9 Type 2 diabetes mellitus without complications; I10 Essential (primary) hypertension
CPT/HCPCS: 85025; 36415; 81003; 83690; 80053; 74177; Q9967; J7120; J2405